=== PATIENT | female | born 1995 | race Hispanic/Latino ===

== ENCOUNTER 2017-02-08 00:42 | Emergency (ER) | payer SELFPAY ==
[~2017-02-08] VITALS: Ht 162.6 cm; Wt 90.9 kg
[2017-02-08 00:51] VITALS: BP 117/77; PULSE 80; RESP 16; O2SAT 100
--- NOTE | 2017-02-08 01:28 | ED.REPORT ---
HPI-Rash / Abscess Date of Service Feb 08, 2017 ED Provider: Jimmy Agrawal DO The pt is a 21 y/o female presenting to the ED complaining of R hand pain. There was no injury to cause the pain and she experiences increased pain when she tries to make a fist. The symptoms began 24 hours ago. Symptoms have worsened over the past day. She has not had a problem like this previously. Denies fevers or chills. Nursing Notes Stated Complaint: R HAND PAIN/EDEMA Chief Complaint: R hand pain Nursing Notes Reviewed: Yes Allergies: Coded Allergies: No Known Allergies (Unverified , 02/08/17) Scheduled Cephalexin (Cephalexin) 500 Mg Capsule 500 MG PO QID General Time Seen by MD: 01:28 Chief Complaint Other (R hand pain ) Hx Obtained From: Patient Arrived By: Walk-in Onset Occurred: 1 - 4 hours ago Symptom Duration: Since onset Recent Healthcare: No recent doctor visit, No recent hospitalization Similar Sx Previous: No Past Medical History Past Medical History None reported Past Surgical History None reported Smoking History Unknown if Ever Smoker Social History Other Social History: Good social support Ambulatory Status Independent Review of Systems Decreased hand ROM secondary to pain; Constitutional: Denies: Chills, Fever Musculoskeletal: Reports: Extremity pain (R hand ) Complete sys rev & neg: except as marked. Physical Exam Initial Vital Signs Vital Signs (First) Date Time Temp Pulse Resp B/P Pulse Ox O2 Delivery O2 Flow Rate FiO2 02/08/17 00:51 36.8 80 16 117/77 100 Room Air Initial VS: Reviewed Head / Eyes: Atraumatic, Normocephalic, PERRL ENT: Mucous membranes moist, Conjunctiva normal, No scleral icterus Neck: Supple, Non-tender, Full range of motion Respiratory: Breath sounds normal, Clear to auscultation, No respiratory distress Cardiovascular: Regular rate & rhythm, Heart sounds normal, Intact distal pulses Neurologic: Alert, Oriented, Nonfocal Psychiatric: Mood/affect normal, Behavior normal, Normal thought content General/Constitutional: Awake, Alert Skin: No rash Erythema and area of warmth about 4 cm x 6 cm overlying her dorsal R hand Upper Extremity / MS: No deformity Tenderness at the base of her 4th MCP joint on R hand Unable to close her R hand due to swelling and pain Tenderness of the fourth extensor tendon, with flexion or extension of the fourth finger Interpretation & Diagnostics X-Ray Interpretation Xray Interpretation: Impression: No acute findings X-Ray Ordered: Hand right Interpretation / Wet Read by: Wet read ED physician Re-Eval/Medical Decision Med Decision/Clinical Course 21-year-old female with an 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 X-rays today are unremarkable. I recommended anti- inflammatories and antibiotics (Keflex) for symptoms and close follow-up with her PCP, and the orthopedist should symptoms worsen. Patient understands and agrees with plan. Pain improved here with Toradol injection. Re-Evaluation/Progress : Time of Eval: 03:30 Re-Evaluation/Progress Note: Pt rechecked. Informed pt of plan for treatment. Pt understands and agrees with plan for treatment. F/U instructions and RTER warnings given. All questions addressed. Counseled Regarding: Diagnosis, Lab results, Need for follow-up, When/why to return to ED Discharge & Departure Impression: Primary Impression: Tenosynovitis of finger Disposition: Home Discharge Condition All VS Reviewed: Yes Condition: Stable Additional Instructions: Thank for you entrusting us with your care today. Please take the antibiotics as prescribed. 800 mg of Ibuprofen 3 times a day will help with the swelling as well. Follow up early next week with the primary care provider attached. Please return to the emergency department if you experience any new or worsening symptoms. I hope you feel better soon. Referrals: NOPCP (PCP) Ashia Avelar MD [facility] Scribe Attestation Portions of this note were transcribed by Moises Ndiaye. I, Dr. Agrawal personally performed the history, physical exam and medical decision-making; I reviewed and confirmed the accuracy of the information in the transcribed note. copies to: Ashia Avelar MD, Gary R DO Feb 08, 2017 01:28 Moises Ndiaye Feb 08, 2017 03:10
[2017-02-08] MEDS ORDERED: CEPH500C PO (03:24)
[2017-02-08 03:35] VITALS: BP 125/61; PULSE 72; RESP 20; O2SAT 99
--- NOTE | 2017-02-08 07:36 | DRSVH ---
PROCEDURE: X-RAY RIGHT HAND, MINIMUM THREE VIEWS ([id number]) INDICATIONS: atraumatic hand pain and swelling TECHNIQUE: 3 views of the hand(s) acquired. COMPARISON: None. FINDINGS: Bones: No fractures or dislocations. Carpal bones are normally aligned. No suspicious bony lesions . Soft tissues: No suspicious soft tissue calcifications. IMPRESSION: No acute fracture. No osseous lesion. If clinical suspicion and/or symptoms persist, fur ther assessment with repeat plainfilms, or advanced imaging (e.g., CT, MRI, or bone scan) may be help ful for further assessment. Dictated by: Xiao Wolf M.D. on 02/08/2017 at 7:34 Approved by: Xiao Wolf M.D. on 02/08/2017 at 7:35
== END 2017-02-08 03:35 | disposition home or self-care (01) ==
LOC: SED 00:42
DX: M65.841 Other synovitis and tenosynovitis, right hand (principal); F12.10 Cannabis abuse, uncomplicated
CPT/HCPCS: 73130; 96372; 99284; J1885